=== PATIENT | female | born 1995 | race Caucasian/White ===

== ENCOUNTER 2018-01-05 13:17 | Emergency (ER) | payer MEDICAID ==
[~2018-01-05] VITALS: Ht 182.9 cm; Wt 88.5 kg
[2018-01-05 13:25] VITALS: BP 105/63
[2018-01-05] MEDS ORDERED: LORazepam 1 MG TAB PO ONE (14:25)
[2018-01-05] MEDS ORDERED: KETOROLAC 60 MG/2 ML VIAL IM ONE (14:25)
[2018-01-05 14:49] LABS: BASOPHILS % (AUTO) 0.4 % (0.0-2.0); EOSINOPHILS # (AUTO) 0.3 K/uL (0-0.4); EOSINOPHILS % (AUTO) 3.4 % (0.0-4.0); HEMATOCRIT 40.4 % (36-48); HEMOGLOBIN 13.3 g/dL (12.0-16.0); LYMPHOCYTES # (AUTO) 3.3 K/uL (2.5-16.5); LYMPHOCYTES % (AUTO) 32.2 % (20.5-51.1); MEAN CORPUSCULAR HEMOGLOBIN 29 pg (27-31); MEAN CORPUSCULAR HGB CONC 33 g/dL (33-37); MEAN CORPUSCULAR VOLUME 86.5 fL (80-94); MONOCYTES # (AUTO) 1.1 K/uL (0.8-1.0); MONOCYTES % (AUTO) 10.4 % (1.7-9.3); NEUTROPHILS # (AUTO) 5.4 K/uL (1.8-7.7); NEUTROPHILS % (AUTO) 53.6 % (42.2-75.2); PLATELET COUNT (AUTO) 316 K/uL (140-450); RED BLOOD CELL COUNT(AUTO) 4.67 MIL/uL (4.20-5.40); RED CELL DISTRIBUTION WIDTH 13.9 % (11.6-13.7); WHITE BLOOD COUNT (AUTO) 10.1 K/uL (4.8-10.8)
[2018-01-05 14:58] LABS: APPEARANCE,URINE CLEAR (CLEAR); BILIRUBIN,URINE NEGATIVE (NEGATIVE); BLOOD, URINE TRACE-I (NEGATIVE); COLOR,URINE YELLOW (YELLOW); LEUKOCYTE ESTERASE ,URINE NEGATIVE (NEGATIVE); NITRITE, URINE NEGATIVE (NEGATIVE); UGLUCOSE NEGATIVE (NEGATIVE)
[2018-01-05 14:59] LABS: ANION GAP 10.1 (8-16); CARBON DIOXIDE 27.4 mmol/L (21-32); CREATININE 0.8 mg/dL (0.6-1.3); POTASSIUM 3.5 mmol/L (3.5-5.1)
[2018-01-05] MEDS ORDERED: cefTRIAXone 250 MG in LIDOCAINE MPF 1% - 5 mL VIAL 0.9 ML IM ONE (15:05)
[2018-01-05] MEDS ORDERED: metroNIDAZOLE 250 MG TAB PO ONE (15:05)
[2018-01-05] MEDS ORDERED: AZITHROMYCIN 250 MG TAB PO ONE (15:05)
[2018-01-05 15:06] LABS: ALBUMIN 3.6 g/dL (3.4-5.0); TOTAL BILIRUBIN 0.5 mg/dL (0.0-1.0)
[2018-01-05 15:12] LABS: RBC,URINE 0-5 (RARE) /HPF (0-5); WBC,URINE 0-5 (RARE) /HPF (0-5)
[2018-01-05 16:45] VITALS: BP 110/60
[2018-01-07 06:16] LABS: CHLAMYDIA TRACHOMATIS AMP DNA Negative (Negative)
== END 2018-01-05 16:45 | disposition home or self-care (01) ==
LOC: MED 13:17
DX: N76.0 Acute vaginitis (principal); B37.0 Candidal stomatitis
CPT/HCPCS: 36415; 71045; 80053; 81001; 81025; 83690; 83880; 84484; 85025; 85379; 87210; 87491; 96372; 99284; J0696; J1885; J2001; Q0092; 81002

== ENCOUNTER 2018-02-11 17:58 | Emergency (ER) | payer MEDICAID ==
[~2018-02-11] VITALS: Ht 172.7 cm; Wt 72.6 kg
[2018-02-11 18:15] VITALS: BP 118/68
--- NOTE | 2018-02-11 20:53 | NUR ---
PATIENT LEFT WITHOUT BEING SEEN BY DR. GROSSMAN. NO FURTHER CARE PROVIDED FOR PATIENT.
--- NOTE | 2018-02-11 20:58 | NUR ---
2054-2ND CALL N/A IN LOBBY 2058-3RD CALL ER FRANCISCO N/A
== END 2018-02-11 20:53 | disposition left against medical advice (07) ==
LOC: MED 17:58
DX: R51 Headache (principal); Z53.21 Procedure and treatment not carried out due to patient leaving prior to being seen by health care provider

== ENCOUNTER 2023-07-06 17:21 | Emergency (ER) | payer SELFPAY ==
[~2023-07-06] VITALS: Ht 182.9 cm; Wt 88.5 kg
[2023-07-06 17:24] VITALS: BP 133/77; PULSE 84; RESP 18; TEMP 98; O2SAT 95
[2023-07-06] MEDS: LORazepam 1 MG TAB PO ONE (18:00)
[2023-07-06 18:33] LABS: BASOPHILS % (AUTO) 0.8 % (0.0-2.0); EOSINOPHILS # (AUTO) 0.3 K/uL (0-0.4); EOSINOPHILS % (AUTO) 4.9 % (0.0-4.0); HEMATOCRIT 39.6 % (36-48); HEMOGLOBIN 13.6 g/dL (12.0-16.0); LYMPHOCYTES # (AUTO) 2.3 K/uL (2.5-16.5); LYMPHOCYTES % (AUTO) 39.9 % (20.5-51.1); MEAN CORPUSCULAR HEMOGLOBIN 30 pg (27-31); MEAN CORPUSCULAR HGB CONC 34 g/dL (33-37); MEAN CORPUSCULAR VOLUME 85.9 fL (80-94); MONOCYTES # (AUTO) 0.9 K/uL (0.8-1.0); MONOCYTES % (AUTO) 15.1 % (1.7-9.3); NEUTROPHILS # (AUTO) 2.3 K/uL (1.8-7.7); NEUTROPHILS % (AUTO) 39.3 % (42.2-75.2); PLATELET COUNT (AUTO) 254 K/uL (140-450); RED BLOOD CELL COUNT(AUTO) 4.61 MIL/uL (4.20-5.40); RED CELL DISTRIBUTION WIDTH 13.5 % (11.6-13.7); WHITE BLOOD COUNT (AUTO) 5.7 K/uL (4.8-10.8)
[2023-07-06 19:23] LABS: ANION GAP 9.9 (8-16); CALCIUM 8.6 mg/dL (8.5-10.1); CARBON DIOXIDE 31.2 mmol/L (21-32); CREATININE 0.7 mg/dL (0.6-1.3); POTASSIUM 4.1 mmol/L (3.5-5.1)
[2023-07-06 19:55] LABS: APPEARANCE,URINE CLEAR (CLEAR); BILIRUBIN,URINE NEGATIVE (NEGATIVE); BLOOD, URINE NEGATIVE (NEGATIVE); COLOR,URINE YELLOW (YELLOW); LEUKOCYTE ESTERASE ,URINE NEGATIVE (NEGATIVE); NITRITE, URINE NEGATIVE (NEGATIVE); PROTEIN,URINE NEGATIVE (NEGATIVE); UGLUCOSE NEGATIVE (NEGATIVE); UROBILINOGEN,URINE 0.2 EU/dL (0.2 - 1)
[2023-07-06] MEDS: ACETAMINOPHEN EXTRA STRENGTH 500 MG TAB PO ONE (20:06)
[2023-07-06 20:45] VITALS: BP 103/53; PULSE 77; RESP 18; TEMP 36.66960; O2SAT 94
== END 2023-07-06 20:45 | disposition home or self-care (01) ==
LOC: MED 17:21
DX: S09.90XA Unspecified injury of head, initial encounter (principal); R56.9 Unspecified convulsions; Z79.899 Other long term (current) drug therapy; X58.XXXA Exposure to other specified factors, initial encounter; Y93.89 Activity, other specified; Y92.89 Other specified places as the place of occurrence of the external cause; Y99.8 Other external cause status
CPT/HCPCS: 36415; 70450; 71045; 80048; 81003; 81025; 85025; 93005; 99285